=== PATIENT | female | born 1945 | race Caucasian/White ===

== ENCOUNTER 2018-05-09 10:48 | Inpatient (IN) | payer MEDICARE, OTHER ==
[~2018-05-09] VITALS: Ht 160 cm; Wt 97.2 kg
[2018-05-09] MEDS ORDERED: HYDROmorphone 2 MG/ML, 1ML IVPush PRN (11:30)
[2018-05-09] MEDS ORDERED: SODIUM CHLORIDE FLUSH 10ML SYR IVF ONE (11:30)
[2018-05-09] MEDS ORDERED: ONDANSETRON 2MG/ML, 2ML IVPush ONE (11:30)
[2018-05-09 11:52] LABS: BASOPHILS # (AUTO) 0.05 x10^3/uL (0-0.1); BASOPHILS % (AUTO) 1 % (0-1); EOSINOPHILS # (AUTO) 0.17 x10^3/uL (0-0.4); EOSINOPHILS % (AUTO) 2 % (1-7); LYMPHOCYTES # (AUTO) 2.37 x10^3/uL (1-3.4); LYMPHOCYTES % (AUTO) 25 % (22-44); MD NO; MEAN CORPUSCULAR HEMOGLOBIN 33.9 pg (27.0-34.8); MEAN CORPUSCULAR HGB CONC 33.9 g/dL (32.4-35.8); MEAN CORPUSCULAR VOLUME 100.3 fL (80-100); MONOCYTES # (AUTO) 0.21 x10^3/uL (0.2-0.8); MONOCYTES % (AUTO) 2 % (2-9); NEUTROPHILS # (AUTO) 6.77 x10^3/uL (1.8-6.8); NEUTROPHILS % (AUTO) 71 % (42-75); PLATELET COUNT 381 x10^3/uL (130-400); RED BLOOD COUNT 4.19 x10^6/uL (3.82-5.3); RED CELL DISTRIBUTION WIDTH 13.3 % (9.6-15.2)
[2018-05-09 12:01] LABS: CULTURE INDICATED? YES; MICROSCOPIC INDICATED
[2018-05-09 12:06] LABS: ALBUMIN 3.4 g/dL (3.4-5.0); ANION GAP 7 mmol/L (5-15); CALCIUM 9.5 mg/dL (8.5-10.1); CHLORIDE 104 mmol/L (98-107)
[2018-05-09 12:11] LABS: ALANINE AMINOTRANSFERASE 29 U/L (12-78); ALKALINE PHOSPHATASE 109 U/L (45-117); BILIRUBIN,TOTAL 0.6 mg/dL (0.2-1.0); CREATININE 0.89 mg/dL (0.55-1.02); TOTAL PROTEIN 7.6 g/dL (6.4-8.2)
[2018-05-09] MEDS ORDERED: OMNIPAQUE 350 MG/ML, 100ML BOTTLE ONE (14:35)
[2018-05-09] MEDS ORDERED: SODIUM CHLORIDE 0.9% 1,000 ML IV ONE (14:53)
[2018-05-09] MEDS ORDERED: ASPI-496 PO (14:59)
[2018-05-09] MEDS ORDERED: OLME20TA17 PO (14:59)
[2018-05-09] MEDS ORDERED: CEFOTETAN PMX 1GM/50ML 50 ML IV ONE (15:00)
[2018-05-09] MEDS ORDERED: FENTANYL PF 250 MCG/5ML ONE (15:10)
[2018-05-09] MEDS ORDERED: CEFOTETAN PMX 1GM/50ML 50 ML ONE (15:10)
[2018-05-09] MEDS ORDERED: EPINEPHRINE 1 MG/ML, 1ML ONE (15:10)
[2018-05-09] MEDS ORDERED: BUPIVACAINE/PF 0.5% ONE (15:10)
[2018-05-09] MEDS ORDERED: MEPERIDINE/PF 25MG/0.5ML IVPush PRN (15:30)
[2018-05-09] MEDS ORDERED: hydrALAzine 20 MG/ML, 1ML IV PRN (15:30)
[2018-05-09] MEDS ORDERED: PROMETHAZINE 25 MG/ML, 1ML IV PRN (15:30)
[2018-05-09] MEDS ORDERED: OXYcodone 5 MG/5 ML ORAL.SOL UDC PO PRN (15:30)
[2018-05-09] MEDS ORDERED: SODIUM CHLORIDE FLUSH 10ML SYR IVF PRN (15:30)
[2018-05-09] MEDS ORDERED: LABETALOL 5MG/ML, 20ML IV PRN (15:30)
[2018-05-09] MEDS ORDERED: ACETAMINOPHEN 325 MG TABLET PO PRN (15:30)
[2018-05-09] MEDS ORDERED: ONDANSETRON 2MG/ML, 2ML IV PRN (15:30)
[2018-05-09] MEDS ORDERED: HYDROmorphone 1 MG/ML, 1ML IV PRN (15:30)
[2018-05-09] MEDS ORDERED: DEXAMETHASONE 4 MG/ML, 1ML ONE (15:51)
[2018-05-09] MEDS ORDERED: PROPOFOL 10 MG/ML, 20ML ONE (16:13)
[2018-05-09] MEDS ORDERED: ROCURONIUM 10MG/ML,5ML ONE (16:14)
[2018-05-09] MEDS ORDERED: SUCCINYLCHOLINE 20 MG/ML, 10ML ONE (16:14)
[2018-05-09] MEDS ORDERED: KETOROLAC 30 MG/1 ML ONE (16:22)
[2018-05-09] MEDS ORDERED: FENTANYL PF 100 MCG/2ML ONE (16:43)
[2018-05-09] MEDS ORDERED: OXYcodone 5 MG/5 ML ORAL.SOL UDC ONE (16:43)
[2018-05-09] MEDS: FENTANYL PF 100 MCG/2ML IV PRN ×2 (16:50→16:56)
[2018-05-09] MEDS ORDERED: OXYcodone/APAP 5/325MG TABLET PO PRN (19:00)
[2018-05-09] MEDS ORDERED: D5%-0.45NACL+KCL 20MEQ 1,000 ML IV SCH (19:00)
[2018-05-09] MEDS ORDERED: morphine SULFATE 10 MG/ML, 1ML IVPush PRN (19:00)
[2018-05-09] MEDS ORDERED: ONDANSETRON 2MG/ML, 2ML IVPush PRN (19:00)
[2018-05-09 19:24] VITALS: BP 103/51
[2018-05-09] MEDS ORDERED: LOSARTAN 50MG TABLET PO SCH (21:00)
[2018-05-10 00:31] VITALS: BP 92/39
[2018-05-10 01:38] VITALS: BP 108/52
[2018-05-10 04:29] VITALS: BP 108/52
[2018-05-10 04:30] VITALS: BP 89/50
[2018-05-10 05:23] LABS: BASOPHILS # (AUTO) 0.01 x10^3/uL (0-0.1); BASOPHILS % (AUTO) 0 % (0-1); EOSINOPHILS # (AUTO) 0.01 x10^3/uL (0-0.4); EOSINOPHILS % (AUTO) 0 % (1-7); LYMPHOCYTES # (AUTO) 1.11 x10^3/uL (1-3.4); LYMPHOCYTES % (AUTO) 9 % (22-44); MD NO; MEAN CORPUSCULAR HEMOGLOBIN 34.2 pg (27.0-34.8); MEAN CORPUSCULAR HGB CONC 33.6 g/dL (32.4-35.8); MEAN CORPUSCULAR VOLUME 101.5 fL (80-100); MEAN PLATELET VOLUME 9.1 fL (7.4-10.4); MONOCYTES # (AUTO) 0.38 x10^3/uL (0.2-0.8); MONOCYTES % (AUTO) 3 % (2-9); NEUTROPHILS # (AUTO) 11.59 x10^3/uL (1.8-6.8); NEUTROPHILS % (AUTO) 89 % (42-75); PLATELET COUNT 335 x10^3/uL (130-400); RED BLOOD COUNT 3.67 x10^6/uL (3.82-5.3)
[2018-05-10 05:32] LABS: ANION GAP 7 mmol/L (5-15); CALCIUM 8.5 mg/dL (8.5-10.1); CHLORIDE 102 mmol/L (98-107); CREATININE 1.19 mg/dL (0.55-1.02)
[2018-05-10 07:41] VITALS: BP 107/55
== END 2018-05-10 11:26 | disposition home or self-care (01) | DRG 343 ==
LOC: ED 13:30 → EDIP 15:12 → 4NOR 17:36 → DCLOUNGE 05-10 11:15
PROVIDERS: ADMIT Surgery; ATTEND Surgery
PROC: 0DTJ4ZZ Resection of Appendix, Percutaneous Endoscopic Approach (ICD-10-PCS; principal; 2018-05-09 15:30)
DX: K35.80 Unspecified acute appendicitis (principal); E66.9 Obesity, unspecified; K66.8 Other specified disorders of peritoneum; I10 Essential (primary) hypertension; Z80.7 Family history of other malignant neoplasms of lymphoid, hematopoietic and related tissues; Z82.49 Family history of ischemic heart disease and other diseases of the circulatory system; Z83.3 Family history of diabetes mellitus; Z87.891 Personal history of nicotine dependence; Z68.38 Body mass index [BMI] 38.0-38.9, adult; Z98.41 Cataract extraction status, right eye; Z98.42 Cataract extraction status, left eye; Z88.8 Allergy status to other drugs, medicaments and biological substances
CPT/HCPCS: 36415; 74177; 80048; 80053; 81001; 83605; 83690; 85025; 87086; 88304; 93005; 96374; G0378; J0171; J1100; J1885; J2704; J3010; J3490; Q9967; J0330; J3480

== ENCOUNTER → 2019-08-26 | Outpatient (CLI) | payer MEDICARE, OTHER ==
[~2019-08-26] MED LIST: ASPI-496 PO; OLME20TA17 PO
== END | disposition home or self-care (01) ==
LOC: CVU 11:55
PROVIDERS: ATTEND Internal Medicine
DX: I08.8 Other rheumatic multiple valve diseases (principal); I11.9 Hypertensive heart disease without heart failure; R01.1 Cardiac murmur, unspecified
CPT/HCPCS: 93306